=== PATIENT | female | born 1960 | race Caucasian/White ===

== ENCOUNTER 2016-10-28 09:39 | Observation (INO) | payer MEDICARE ==
[~2016-10-28] VITALS: Ht 154.9 cm; Wt 45.0 kg
[2016-10-28] VITALS (9 sets, daily range): BP systolic 96–166; BP diastolic 48–83; BMI 17.5
[2016-10-28 10:20] LABS: UDS - AMPHET NEGATIVE QUAL (NEGATIVE); UDS - BARB NEGATIVE QUAL (NEGATIVE); UDS - BENZO POSITIVE QUAL (NEGATIVE); UDS - COCAINE NEGATIVE QUAL (NEGATIVE); UDS - METH NEGATIVE QUAL (NEGATIVE); UDS - OPIATE POSITIVE QUAL (NEGATIVE); UDS - PCP NEGATIVE QUAL (NEGATIVE); UDS - THC NEGATIVE QUAL (NEGATIVE)
[2016-10-28 10:22] LABS: APPEARANCE CLOUDY (CLEAR); BACTERIA MANY /hpf (NONE SEEN); BILIRUBIN NEGATIVE (NEGATIVE); COLOR YELLOW (YELLOW); EPITHELIAL CELLS RARE /hpf (0-5); GLUCOSE NEGATIVE (NEGATIVE); KETONE NEGATIVE (NEGATIVE); LEUKOCYTE ESTERASE TRACE (NEGATIVE); MUCUS <1+ /lpf (NONE SEEN); NITRITE POSITIVE (NEGATIVE); PROTEIN NEGATIVE (NEGATIVE); RED CELLS - URINE RARE /hpf (0-5); SPECIFIC GRAVITY 1.015 (1.005-1.020); UROBILINOGEN NORMAL (NORMAL)
[2016-10-28 11:01] LABS: HEMATOCRIT 32.9 % (36.0-48.0); HEMOGLOBIN 10.6 g/dL (12-16); LYMPHOCYTES 22.7 % (15-50); MCH 31.5 pg (26.0-34.0); MCHC 32.2 g/dL (31.0-37.0); MCV 97.6 fL (80.0-100.0); NEUTROPHILS 64.2 % (40-80); RBC 3.37 10x6/uL (4.00-5.40); RDW 12.5 % (11.5-14.5); WBC 7.7 10x3/uL (4.8-10.8)
[2016-10-28 11:09] LABS: PLATELET COUNT 200 10x3/uL (130-400)
[2016-10-28 11:25] LABS: ANION GAP 9.2 mmol/L (8-16); BILIRUBIN - TOTAL 0.36 mg/dL (0.2-1.3); CALCIUM 8.2 mg/dL (8.5-10.1); CARBON DIOXIDE 28.4 mmol/L (21.0-32.0); CREATININE - SERUM 0.9 mg/dL (0.6-1.3); POTASSIUM - SERUM 3.6 mmol/L (3.5-5.1); PROTEIN - SERUM 5.8 g/dL (6.4-8.2)
--- NOTE | 2016-10-28 15:00 | NUR ---
PT TRANSPORTED TO ER VIA STRETCHER ACCOMPANIED BY RN. PT IS LETHARGIC AROUSES TO VERBAL STIMULI. PT ATTACHED TO MONITOR. PT HR SB PER CM. PT HAS NC @ 2L, ALL OTHER VSS. PT HAS TENORIO IN PLACE. TEMP LOW PER AXILLARY, WARM BLANKET APPLIED. NARCAN DRIP INFUSING AT THIS TIME. WILL MONITOR.
[2016-10-28] MEDS ORDERED: ZANAFLEX2 M1 PO (15:23)
[2016-10-28] MEDS ORDERED: VALIUM10 MG PO (15:23)
[2016-10-28] MEDS ORDERED: MOBIC7.5 MG PO (15:25)
[2016-10-28] MEDS ORDERED: OXYCONTIN15 MG PO (15:25)
[2016-10-28] MEDS ORDERED: BREO ELLIPTA 11 EACH INH (15:26)
--- NOTE | 2016-10-28 16:00 | NUR ---
AT BEDSIDE. UPDATED ORDERS RECD.
--- NOTE | 2016-10-28 16:44 | NUR ---
CM ATTEMPTED TO SEE PATIENT AND WAS TOLD BY RESEARCH GROUP DIRECTOR (POPEYE) SHE WAS NOT AROUSABLE AT THIS TIME. CM WILL SEE PATIENT TOMORROW.
--- NOTE | 2016-10-28 18:30 | NUR ---
PT WAKING UP A LITTLE MORE AT THIS TIME. PT IS STILL LETHARGIC AND EASILY DRIFTS BACK TO SLEEP. VSS.
--- NOTE | 2016-10-28 19:15 | NUR ---
REC'D TO CARE, DOT NET DEVELOPER PER FLOWSHEET. PT AWAKENS EASILY, VSS. DENIES SUICIDAL IDEATION. NEURO WNL. IV INFUSING, NO REDNESS OR SWELLING AT SITE. FOLYE CATH PATENT. PT WANTS TO KNOW IF SHE CAN HAVE "MY MEDS". INFORMED HER I WOULD CHECK WITH MD. NO SIGN OF DISTRESS. PT BACK TO SLEEP EASILY AT THIS TIME. BED ALARM ON. C/L IN REACH.
--- NOTE | 2016-10-28 21:09 | NUR ---
Domonique CHEN PAGED AND NOTIFIED OF PT C/O CHRONIC PAIN AND WANTING HOME MEDS, NEW ORDERS REC'D.
--- NOTE | 2016-10-28 21:30 | NUR ---
NO VISITORS. PT RESTING WITH EYES CLOSED, NO SIGN OF DISTRESS.
--- NOTE | 2016-10-28 23:34 | NUR ---
REASSESSMENT PER FLOWSHEET. PT SLEEPING, AWAKENS TO NAME. NO SIGN OF DISTRESS. VSS. PT ASKING ABOUT PAIN MED - OFFERED PRN TYLENOL PER ORDER, PT REFUSED. ALARMS ON AND C/L IN REACH.
[2016-10-29] VITALS (14 sets, daily range): BP systolic 93–123; BP diastolic 47–77; Ht 154.9 cm; Wt 45.0 kg
--- NOTE | 2016-10-29 01:35 | NUR ---
RESTING WITH EYES CLOSED, NO SIGN OF DISTRESS. VSS.
--- NOTE | 2016-10-29 03:20 | NUR ---
REASSESSMENT PER FLOWSHEET, NO ACUTE CHANGES. PT STILL REFUSES TYLENOL, REPOSITIONS SELF NEEDED, C/L IN REACH.
[2016-10-29 04:28] LABS: BASOPHILS 0.3 % (0.0-2.0); EOSINOPHILS 1.5 % (0-7); HEMATOCRIT 38.5 % (36.0-48.0); HEMOGLOBIN 12.1 g/dL (12-16); IMMATURE GRANULOCYTES 0.2 % (0-5); LYMPHOCYTES 21.3 % (15-50); MCH 31.3 pg (26.0-34.0); MCHC 31.4 g/dL (31.0-37.0); MEAN PLATELET VOLUME 10.6 fL (7.4-10.4); MONOCYTES 8.5 % (2-11); NEUTROPHILS 68.2 % (40-80); RBC 3.86 10x6/uL (4.00-5.40); RDW 12.6 % (11.5-14.5)
[2016-10-29 04:29] LABS: MCV 99.7 fL (80.0-100.0); PLATELET COUNT 252 10x3/uL (130-400)
[2016-10-29 04:56] LABS: ALBUMIN 2.4 g/dL (3.4-5.0); ALKALINE PHOSPHATASE 77 U/L (46-116); ALT (SGPT) 13 U/L (10-68); BILIRUBIN - TOTAL 0.35 mg/dL (0.2-1.3); CALC OSMOLALITY 279 mosm/kg (275-300); CALCIUM 7.6 mg/dL (8.5-10.1); CARBON DIOXIDE 24.8 mmol/L (21.0-32.0); CHLORIDE - SERUM 110 mmol/L (98-107); CREATININE - SERUM 0.7 mg/dL (0.6-1.3); GLUCOSE 86 mg/dL (74-106); POTASSIUM - SERUM 3.8 mmol/L (3.5-5.1); PROTEIN - SERUM 5.2 g/dL (6.4-8.2); SODIUM 141 mmol/L (136-145); UREA NITROGEN 12 mg/dL (7-18); eGFR NON AFRICAN AMERICAN > 90 mL/min (90-120)
--- NOTE | 2016-10-29 07:15 | NUR ---
REPORT RECIEVED FROM TIN CUTTER NURSE. PT RESTING IN BED QUIETLY. NO S/SX OF ACUTE DISTRESS NOTED AT THIS TIME. VSS. ASSESSMENT COMPLETE PER FLOWSHEET. BED ALARM ON. BED IN LOW POSITION. WILL CONTINUE TO ASSESS FOR CHANGES. PLAN OF CARE CONTINUED.
--- NOTE | 2016-10-29 09:00 | NUR ---
NO FAMILY AT THIS TIME.
--- NOTE | 2016-10-29 11:00 | NUR ---
NO CHANGES NOTED FROM PREVIOUS ASSESSMENT.
--- NOTE | 2016-10-29 11:00 | NUR ---
PT WANTING TO LEAVE AMA. STATES SHE WANTS TO LEAVE SO SHE CAN HEAD TO [place] TO LIVE WITH HER BROTHER. SHE IS ALSO STATING HER IS STEALING HER MEDICATION AND SHE WANTS TO DIVORCE HIM. THIS MORNING AROUND 10AM SHE WANTED ME TO CALL HER TO BRING HER GLASSES AND A BOOK FOR HER TO READ. SHE HAS NOW STATED SHE DOES NOT WANT TO SEE HIM AT ALL AND WANT TO LEAVE BEFORE HER ARRIVES. FACE SHE RE-FAXED DOWN TO PSYCH. DR GARRETT TO SEE PT SHORTLY.
--- NOTE | 2016-10-29 12:15 | NUR ---
DR. RODRIGUEZ AT BEDSIDE.
--- NOTE | 2016-10-29 13:00 | NUR ---
DISCHARGE INSTRUCTIONS REVIEWED WITH PT. VERBALIZED UNDERSTANDING. INSTRUCTED PT TO DIRECTOR IMAGING RX FROM [facility] AND TO MAKE A FOLLOW UP APPOINTMENT WITH DR. DE LA CRUZ. STATED SHE WOULD CALL AND MAKE HER APPT. AWAITING TRANSPORTATION.
[2016-10-29] MEDS ORDERED: CIPRO250 MG PO (13:09)
--- NOTE | 2016-10-29 13:15 | NUR ---
IV FROM L AC REMOVED. CATH INTACT. F/C REMOVED WELL. CATH TIP INTACT. 8CC REMOVED FROM [facility].
--- NOTE | 2016-10-29 13:28 | NUR ---
Patient Name: AMBAR SIMMONS Admission Status: ER Accout number: [id number] Admission Date: 10-28-2016 : 1960 Admission Diagnosis: Attending: ISABEL Current LOS: 1 Anticipated DC Date: 10-29-2016 Planned Disposition: Home Primary Insurance: [employer] PPO MCR [employer] Discharge Planning Comments: CM SPOKE WITH PATIENT REGARDING D/C NEEDS AND PLANS. PATIENT STATED SHE LIVES WITH HER SPOUSE (KATHY) AND HE IS DRIVING HER HOME TODAY. PATIENT IS DISCHARGING HOME TODAY. PATIENT STATED SHE HAS 4 STEPS W/RAILS TO ENTER HOME AND NO STAIRS INSIDE. PATIENTS PCP IS DR. DE LA CRUZ AND PHARMACY IS [facility] THE [facility] . PATIENT STATED SHE IS INDEPENDENT WITH HER CARE AND HAS NO DME AT HOME. PATIENT WAS GIVEN DRUG AND ALCOHOL TREATMENT FACILITY INFORMATION. PATIENT STATED I'LL TAKE THEM BUT I DON'T NEED THEM. PATIENT REF HOME HEALTH OR ANY OTHER NEEDS FOR DISCHARGE. PCP DR. JONO MCCORMICK AT [address] KATHY SIMMONS (SPOUSE) [phone] [employer] Lease Information Clerk: Jackelyn Lazo Is the patient Alert and Oriented? Yes 0 * How many steps to enter\exit or inside your home? 4 W/RAILS 0 * PCP DR. DE LA CRUZ 0 * Pharmacy [facility] 0 * Preadmission Environment Home with Family 0 * ADLs Independent 0 * Equipment None 0 * List name and contact numbers for known caregivers / representatives who currently or will assist patient after discharge: KATHY SIMMONS (SPOUSE) [phone] * Community resources currently utilized None 0 * Additional services required to return to the preadmission environment? Yes 0 * Can the patient safely return to the preadmission environment? Yes 0 * Has this patient been hospitalized within the prior 30 days at any hospital? No 0 Grand Total: 0
--- NOTE | 2016-10-29 14:15 | NUR ---
PT REPORTS TO HAVE MEDICATIONS LOCKED UP IN PHARMACY. PHARMACY CONTACTED AND MEDICATIONS ARE AVAILABLE (RX NARCOTICS). DR. TUTTLE CONTACTED DUE TO ADMITTING DX AND DR. GOLD SUGGESTIONS FOR D/C. DR. TUTTLE STATED TO GIVE PT MEDICATIONS WHICH INCLIDE, VALIUM, ZANAFLEX, AND OXYCODONE. ARMHOLE BASTER HAND, CLAUDINE AT BEDSIDE WITH MEDICATIONS. MEDICATION FORM SIGNED PER MRS. SIMMONS AND MEDICATIONS TAKEN WITH HER. AT BEDSIDE FOR TRANSPORTATION.
--- NOTE | 2016-10-29 15:45 | NUR ---
PT REPORTS TO HAVE MEDICATIONS LOCKED UP IN PHARMACY. PHARMACY CONTACTED AND MEDICATIONS ARE AVAILABLE (RX NARCOTICS). DR. TUTTLE CONTACTED DUE TO ADMITTING DX AND DR. GOLD SUGGESTIONS FOR D/C. DR. TUTTLE STATED TO GIVE PT MEDICATIONS WHICH INCLIDE, VALIUM, ZANAFLEX, AND OXYCODONE. REFRACTORY MANAGER, CLAUDINE AT BEDSIDE WITH MEDICATIONS. MEDICATION FORM SIGNED PER MRS. SIMMONS AND MEDICATIONS TAKEN WITH HER. AT BEDSIDE FOR TRANSPORTATION.
--- NOTE | 2016-10-30 10:21 | CN ---
PATIENT NAME:AMBAR SIMMONS MEDICAL RECORD: [id number] : 62 LOCATION:[id number] ADMIT DATE: 10/28/16 ACCOUNT: [id number] CONSULTING PHYSICIAN: KELSEY RODRIGUEZ III, MD REFERRING PHYSICIAN: PIOTR TUTTLE MD DATE OF CONSULTATION: 10/29/2016 FINDINGS: A 56-year-old white female admitted to the intensive care unit after presentation to the Emergency Department. At that time, she was lethargic and arousing only to painful stimuli. She had taken an overdose of oxycodone as well as diazepam. On interview today, the patient remains somewhat sleepy. She states that she was not intending to harm herself. She had made the same assertion to staff in the ICU. She denies previous psychiatric contact. The patient states she has been receiving pain medications for a number of years because of various orthopedic problems. She stated that she was angry at her because she thought that he was hiding her medication and so, as a result of this she took the overdose. The patient's story is frequently contradictory. The patient is very vague about her pain management program. It appears that she may have a prescription drug abuse problem. On exam, the patient's mood is at times, irritable and other times dysphoric. Affect is shallow and brittle. Speech tends to be somewhat tangential and very circumstantial. The patient is at times evasive about answering direct questions regarding her medication use. Content of thought is negative for suicidal ideation or psychosis. She is aware that she is hospitalized. She is aware of the date. She shows some minor concentration difficulties. IMPRESSION: Subacute delirium -- resolving, strong possibility of prescription drug abuse. RECOMMENDATIONS: I would not advise routine prescriptions for narcotics nor benzodiazepines unless the patient is in a tightly controlled prescription management program, preferably she should be enrolled in a pain management program. TRANSINT:[id number] Voice Confirmation ID: [id number] DOCUMENT ID: [id number] KELSEY RODRIGUEZ III, MD at 1021 CC: [id number] DICTATION DATE: 10/29/16 1251 NUCLEAR LOGGING ENGINEER: 10/29/16 1604 DIS IN 10/29/16 [id number] [place] [address]
== END 2016-10-29 16:08 | disposition home or self-care (01) ==
LOC: D.ER 09:39 → D.SDCHOLD 11:46 → D.ICU 11:46 → OBSVTIME 11:46 → D.ICU 14:40
PROVIDERS: Emergency Medicine; ADMIT Emergency Medicine
DX: T42.4X2A Poisoning by benzodiazepines, intentional self-harm, initial encounter (principal); T40.602A Poisoning by unspecified narcotics, intentional self-harm, initial encounter; J44.9 Chronic obstructive pulmonary disease, unspecified; F05 Delirium due to known physiological condition; F41.9 Anxiety disorder, unspecified; D64.9 Anemia, unspecified; R00.1 Bradycardia, unspecified; N39.0 Urinary tract infection, site not specified